=== PATIENT | male | born 1975 | race Caucasian/White ===

== ENCOUNTER 2020-07-08 15:12 | Emergency (ER) | payer MEDICAID, OTHER ==
[~2020-07-08] VITALS: Ht 185.4 cm; Wt 131.1 kg
[2020-07-08] MEDS ORDERED: FLUORESCEIN SOD 1 MG TEST STRIP ONE (17:22)
[2020-07-08] MEDS ORDERED: TETRACAINE HCL 0.5% OPTH(EYE) SOLN 4ML ONE (17:22)
[2020-07-08] MEDS ORDERED: FLUORESCEIN SOD 1 MG TEST STRIP LEFTEYE ONE (17:30)
[2020-07-08] MEDS ORDERED: TETRACAINE HCL 0.5% OPTH(EYE) SOLN 4ML EACHEYE ONE (17:30)
[2020-07-08] MEDS ORDERED: ACETAMINOPHEN 325 MG TAB PO ONE ×2 (17:44→17:45)
[2020-07-08 17:51] VITALS: BP 164/84
== END 2020-07-08 17:46 | disposition home or self-care (01) ==
LOC: ER 15:12
DX: H10.89 Other conjunctivitis (principal); G43.909 Migraine, unspecified, not intractable, without status migrainosus
CPT/HCPCS: 70450

== ENCOUNTER 2021-09-17 20:56 | Emergency (ER) | payer MEDICAID ==
[~2021-09-17] VITALS: Ht 185.4 cm; Wt 158.8 kg
[2021-09-17 23:32] LABS: Basophils # (auto) 0 10 ^3/uL (0-0.2); Basophils % (auto) 0.3 % (0.0-2.0); Eosinophils # (auto) 0.2 10 ^3/uL (0-0.8); Eosinophils % (auto) 1.9 % (0.0-7.0); Hematocrit 41.1 % (41.0-53.0); Hemoglobin 13.8 g/dL (13.5-17.5); Lymphocytes # (auto) 1.7 10 ^3/uL (0.4-5.4); Lymphocytes % (auto) 15.7 % (10.0-50.0); Mean Corpuscular Hemoglobin 28.8 pg (28.0-32.0); Mean Corpuscular Hgb Conc. 33.5 g/dL (32.0-36.0); Mean Corpuscular Volume 86.1 fL (80.0-100.0); Monocytes % (auto) 9.2 % (0.0-12.0); Neutrophils # (auto) 7.7 10 ^3/uL (1.6-8.6); Neutrophils % (auto) 72.9 % (37.0-80.0); Nucleated Red Blood Cells % 0.1 %; Red Blood Cells 4.77 10^6/uL (4.5-5.90); Red Cell Distribution Width 13.7 % (11.8-14.3); White Blood Cell 10.6 10^3/uL (4.4-10.8)
[2021-09-18 00:03] LABS: Albumin 2.4 g/dL (3.4-5.0); Calcium 8.8 mg/dL (8.5-10.1); Potassium 3.4 mmol/L (3.5-5.1)
[2021-09-18 00:06] LABS: Bilirubin, Total 0.8 mg/dL (0.2-1.0); Total Protein 7.9 g/dL (6.4-8.2)
[2021-09-18] MEDS ORDERED: SODIUM CHLORIDE 0.9% 1,000 ML IV ONE (01:15)
[2021-09-18] MEDS ORDERED: CLINDAMYCIN 600MG IV 50 ML IV ONE (01:15)
[2021-09-18 02:47] VITALS: BP 130/70
== END 2021-09-18 02:49 | disposition home or self-care (01) ==
LOC: ER 20:56
DX: L03.116 Cellulitis of left lower limb (principal); E11.9 Type 2 diabetes mellitus without complications; Z88.8 Allergy status to other drugs, medicaments and biological substances
CPT/HCPCS: 36415; 73590; 80053; 83605; 85025; 85652; 86141; 87040; 93971; 99285; J3490; J7030